=== PATIENT | female | born 1935 | race Caucasian/White ===

== ENCOUNTER 2021-01-28 11:54 | Emergency (ER) | payer MEDICARE ==
[~2021-01-28] VITALS: Ht 152.4 cm; Wt 47.7 kg
[2021-01-28 13:32] LABS: BASO # 0.02 K/mm3 (0.02-0.10); EOS # 0.06 K/mm3 (0.04-0.40); EOS % 1.2 % (1.0-5.0); HEMATOCRIT 29.6 % (37.0-47.0); HEMOGLOBIN 9.7 g/dL (12.5-16.0); LYMPH# 0.99 K/mm3 (1.50-4.00); MEAN CELL VOLUME 93 fl (78-100); MEAN CORPUSCULAR HEMOGLOBIN 31 pg (27-31); MEAN CORPUSCULAR HGB CONC 33 g/dL (33-37); MEAN PLATELET VOLUME 9.1 fl (7.4-10.4); MONO # 0.43 K/mm3 (0.20-0.80); NEU # 3.39 K/mm3 (1.40-6.50); PLATELET COUNT 93 K/mm3 (130-400); RED BLOOD COUNT 3.18 M/mm3 (4.10-5.30); RED CELL DISTRIBUTION WIDTH 14.3 % (11.5-14.5); WHITE BLOOD COUNT 4.9 K/mm3 (4.8-10.8)
[2021-01-28 13:39] LABS: ALBUMIN 3.4 g/dL (3.4-4.8); POTASSIUM 3.7 mmol/L (3.5-5.1); SODIUM 140 mmol/L (136-145)
[2021-01-28 13:40] LABS: CALCIUM 8.8 mg/dL (8.3-10.5)
[2021-01-28 13:41] LABS: GLUCOSE 86 mg/dL (65-105); TOTAL PROTEIN 6.3 g/dL (6.2-8.1)
[2021-01-28 13:43] LABS: CARBON DIOXIDE 23 mmol/L (23-31); TOTAL BILIRUBIN 0.6 mg/dL (0.2-1.2)
[2021-01-28 13:47] LABS: AST-SGOT 20 U/L (5-34)
[2021-01-28 14:09] LABS: ALT/SGPT < 6 U/L (0-55)
[2021-01-28] MEDS ORDERED: ZYRTEC10 M3 PO (14:51)
[2021-01-28] MEDS ORDERED: TYLENOL 325MG325 MG PO (14:52)
[2021-01-28] MEDS ORDERED: ULTRAM50 M1 PO (14:52)
[2021-01-28] MEDS ORDERED: ASPIRIN E.C. 8181 MG PO (14:53)
[2021-01-28] MEDS ORDERED: PROTONIX20 M1 PO (14:53)
[2021-01-28] MEDS ORDERED: PRILOSEC 20MG20 MG PO (14:54)
[2021-01-28] MEDS ORDERED: LEVOTHYROXINE50 MCG PO (14:55)
[2021-01-28] MEDS ORDERED: SINEMET 25-1001 EACH PO (15:04)
[2021-01-28] MEDS ORDERED: ACETAMINOPHEN500 M5 PO (16:44)
[2021-01-28] MEDS ORDERED: TRAMADOL 50 MG TAB PO (17:30)
[2021-01-28 17:40] VITALS: BP 143/60
== END 2021-01-28 17:37 | disposition home or self-care (01) ==
LOC: ED 11:54
PROVIDERS: Nurse Practitioner
DX: S72.114A Nondisplaced fracture of greater trochanter of right femur, initial encounter for closed fracture (principal); G20 Parkinson's disease; K21.9 Gastro-esophageal reflux disease without esophagitis; Z87.891 Personal history of nicotine dependence; Z79.899 Other long term (current) drug therapy; W01.198A Fall on same level from slipping, tripping and stumbling with subsequent striking against other object, initial encounter